=== PATIENT | female | born 1960 | race Caucasian/White ===

== ENCOUNTER 2018-05-03 21:12 | Emergency (ER) | payer BC, OTHER ==
[2018-05-03] MEDS ORDERED: Lidocaine 2% 20 ML MDV INJECT ONE (21:13)
[2018-05-03] MEDS ORDERED: Ondansetron 4 MG Tab.DIS PO ONE (21:47)
[2018-05-03] MEDS ORDERED: HYDROmorphone 2 MG/ML SDV IM ONE (21:47)
--- NOTE | 2018-05-03 23:54 | EDM.PDOC ---
ED HPI GENERAL MEDICAL PROBLEM - General Chief Complaint: Upper Extremity Injury/Pain Stated Complaint: LT SHOULDER PAIN Time Seen by Provider: 05/03/18 21:40 Source of Information: Reports: Patient History Limitations: Reports: No Limitations - History of Present Illness INITIAL COMMENTS - FREE TEXT/NARRATIVE: States she only drinks 2 drinks alcohol today but she smells like alcohol she denies drinking more than 2 drinks per day. My impression that indeed she does drink more this and this is confirmed by her when she went off to x- ray. She fell at home and has pain in her left shoulder. She has bronzing of her skin. She denies or head pain, abdominal or right upper extremity or bilateral lower extremity pain. - Related Data Allergies Allergy/AdvReac Type Severity Reaction Status Date / Time Penicillins Allergy Swelling Verified 05/03/18 21:34 Review of Systems - Review of Systems Review Of Systems: See Below Constitutional: Reports: Other (Pain in her left shoulder) Eyes: Reports: No Symptoms Ears: Reports: No Symptoms Nose: Reports: No Symptoms Mouth/Throat: Reports: No Symptoms Respiratory: Reports: No Symptoms Cardiovascular: Reports: No Symptoms GI/Abdominal: Reports: No Symptoms Genitourinary: Reports: No Symptoms Musculoskeletal: Reports: Shoulder Pain Skin: Reports: No Symptoms Neurological: Reports: No Symptoms Psychiatric: Reports: No Symptoms ED EXAM, GENERAL - Physical Exam Exam: See Below Free Text/Narrative:: He shows marked pain in her left shoulder if she moves she will spelled out loud. She has marked angular deformity of the shoulder. Moderate tenderness with any palpation. She has some normal sensation in the shoulder no loss of deltoid scapular or axillary or chest wall nerve sensory distribution General Appearance: Alert, WD/WN, Moderate Distress Eye Exam: Bilateral Eye: Normal Inspection, PERRL Ears: Normal External Exam, Normal Canal, Hearing Grossly Normal, Normal TMs Ear Exam: Bilateral Ear: Auricle Normal Nose: Normal Inspection, Normal Mucosa Throat/Mouth: Normal Inspection, Normal Lips, Normal Teeth, Normal Gums, Normal Oropharynx, Normal Voice, No Airway Compromise, Other (Alcohol breath is very significant) Head: Atraumatic Neck: Normal Inspection, Supple, Non-Tender, Full Range of Motion Respiratory/Chest: No Respiratory Distress, Lungs Clear, Normal Breath Sounds, No Accessory Muscle Use, Chest Non-Tender, Decreased Breath Sounds Cardiovascular: Normal Peripheral Pulses, Regular Rate, Rhythm, No Edema, No Gallop, No JVD, No Murmur, No Rub Peripheral Pulses: 1+: Brachial (L), Brachial (R), Radial (L), Radial (R) GI/Abdominal: Normal Bowel Sounds, Soft, Non-Tender, No Organomegaly, No Distention, No Abnormal Bruit, No Mass (Female) Exam: Deferred Rectal (Female) Exam: Deferred Back Exam: Normal Inspection Extremities: Other (Marked left shoulder angular deformity with a sharp profile. Deltoid nerve sensation intact radial pulses volar pulses intact with pain with any movement.) Psychiatric: Normal Affect, Normal Mood Skin Exam: Warm, Dry, Intact Lymphatic: No Adenopathy ED TRAUMA EXTREMITY PROCEDURES - Joint Reduction Site: Shoulder (L) Local Anesthesia - Lidocaine (Xylocaine): Other (8 mL 2% lidocaine injected subacromial bursa and her anterior joint.) Pre-Procedure NV Status: Normal Post-Procedure NV Status: Normal Technique: Traction/Counter Traction Number of Attempts: Other: (Attempt to bring her shoulder Delmy heads with traction this did not work. Consequently while patient's arm was above her head in complete overhead flexion pressure on the humeral head force the humeral head back into place easily with a large clunk) Post-Reduction Imaging: Completely Reduced Joint Reduction Complications: Yes - Splinting Left Upper Extremity Splint Design: Sling & Swathe Applied & Form Fitted By: Nurse Provider Post-Splint Application NV Check: NV Status Normal, Good Position Complications: No Course - Vital Signs Last Recorded V/S: Last Vital Signs Temp 34.7 C L 05/03/18 21:30 Pulse 82 05/03/18 21:30 Resp 18 05/03/18 21:30 BP 151/84 H 05/03/18 21:30 Pulse Ox 100 05/03/18 21:30 - Orders/Labs/Meds Orders: Active Orders 24 hr Category Date Time Status Forearm 2V Lt [CR] Stat Exams 05/03/18 21:49 Taken Humerus Lt [CR] Stat Exams 05/03/18 21:48 Taken Shoulder 1V Lt [CR] Stat Exams 05/03/18 21:48 Taken Labs: Laboratory Tests 05/03/18 05/03/18 Range/Units 21:55 21:55 WBC 4.4 L (4.5-12.0) X10-3/uL RBC 3.97 (3.23-5.20) x10(6)uL Hgb 14.0 (11.5-15.5) g/dL Hct 40.6 (30.0-51.3) % MCV 102.3 H (80-96) fL MCH 35.3 H (27.7-33.6) pg MCHC 34.5 (32.2-35.4) g/dL RDW 13.4 (11.5-15.5) % Plt Count 278 (125-369) X10(3)uL MPV 7.7 (7.4-10.4) fL Neut % (Auto) 58.6 (46-82) % Lymph % (Auto) 29.2 (13-37) % [place] % (Auto) 8.1 (4-12) % Eos % (Auto) 3 (1.0-5.0) % Baso % (Auto) 1 (0-2) % Neut # (Auto) 2.6 (1.6-8.3) # Lymph # (Auto) 1.3 (0.6-5.0) # [place] # (Auto) 0.4 (0.0-1.3) # Eos # (Auto) 0.1 (0.0-0.8) # Baso # (Auto) 0.0 (0.0-0.2) # Sodium 123 L (135-145) mmol/L Potassium 3.2 L (3.5-5.3) mmol/L Chloride 85 L* (100-110) mmol/L Carbon Dioxide 23 (21-32) mmol/L BUN 10 (7-18) mg/dL Creatinine 0.7 (0.55-1.02) mg/dL Est Cr Clr Drug Dosing TNP Estimated GFR (MDRD) > 60 (>60) BUN/Creatinine Ratio 14.3 (9-20) Glucose 126 H (80-116) mg/dL Calcium 9.1 (8.6-10.2) mg/dL Total Bilirubin 0.4 (0.1-1.3) mg/dL AST 30 H (5-25) IU/L ALT 21 (12-36) U/L Alkaline Phosphatase 107 (56-112) IU/L Total Protein 8.4 H (6.0-8.0) g/dL Albumin 3.6 (3.5-5.2) g/dL Globulin 4.8 g/dL Albumin/Globulin Ratio 0.8 Meds: Medications Discontinued Medications Generic Name Dose Route Start Last Admin Trade Name Christie PRN Reason Stop Dose Admin Hydromorphone HCl 1 mg 05/03/18 21:47 05/03/18 21:53 Dilaudid IM 05/03/18 21:48 1 mg ONETIME ONE Administration Ondansetron HCl 4 mg 05/03/18 21:47 05/03/18 21:54 Zofran Odt PO 05/03/18 21:48 4 mg ONETIME ONE Administration Departure - Departure Time of Disposition: 22:05 Disposition: Home, Self-Care 01 Clinical Impression: Alcohol abuse Dislocation, shoulder, inferior Qualifiers: Encounter type: initial encounter Laterality: left Qualified Code(s): S43.035A - Inferior dislocation of left humerus, initial encounter - Discharge Information *PRESCRIPTION DRUG MONITORING PROGRAM REVIEWED*: Not Applicable *COPY OF PRESCRIPTION DRUG MONITORING REPORT IN PATIENT CHARIS: Not Applicable Instructions: Shoulder Dislocation Referrals: PCP,None [Primary Care Provider] - - My Orders Last 24 Hours: My Active Orders 05/03/18 21:48 Humerus Lt [CR] Stat Shoulder 1V Lt [CR] Stat 05/03/18 21:49 Forearm 2V Lt [CR] Stat - Assessment/Plan Last 24 Hours: My Active Orders 05/03/18 21:48 Humerus Lt [CR] Stat Shoulder 1V Lt [CR] Stat 05/03/18 21:49 Forearm 2V Lt [CR] Stat
[2018-05-04] MEDS ORDERED: Acetaminophen/HYDROcodone 325-5 MG Tab PO ONE (00:32)
--- NOTE | 2018-05-05 11:43 | CR ---
INDICATION: Trauma. LEFT HUMERUS: Two views of the humerus were obtained and did not fully include the distal portion of the humerus. There is noted a glenohumeral dislocation with the humerus medial and apparently anterior and slightly inferior to the glenoid. There are calcific or bony densities along the inferior aspect of the glenoid, which may represent calcific tendonitis or possibly chip fracture fragments. The adjacent ribs appear to be within normal limits. MTDD
--- NOTE | 2018-05-05 11:43 | CR ---
INDICATION: Trauma. LEFT FOREARM: Frontal and lateral views of the left forearm were obtained 09/2017 - no comparisons. No evidence of a fracture or dislocation was identified - no definite bone or joint abnormality was seen. [facility]
--- NOTE | 2018-05-05 11:44 | CR ---
INDICATION: Post reduction. SHOULDER: A single frontal view of the left shoulder revealed improved position suggested of the humerus with respect to the glenoid - probable reduction of the glenohumeral dislocation. It is difficult to be certain of its position, however, without an axillary or Y-view of the shoulder. The calcific or bony densities seen previously are now in the area of the rotator cuff and likely represent calcific tendinitis. MTDD
== END 2018-05-04 00:30 | disposition home or self-care (01) ==
LOC: FB.ED 21:12
DX: S43.035A Inferior dislocation of left humerus, initial encounter (principal); S53.115A Anterior dislocation of left ulnohumeral joint, initial encounter; F10.10 Alcohol abuse, uncomplicated; Z88.0 Allergy status to penicillin; W19.XXXA Unspecified fall, initial encounter; Y92.009 Unspecified place in unspecified non-institutional (private) residence as the place of occurrence of the external cause
CPT/HCPCS: 23650; 36415; 73020; 73060; 73090; 80053; 85025; 96372; 99283; A9270; J1170